=== PATIENT | male | born 1990 | race Caucasian/White ===

== ENCOUNTER 2017-05-17 21:31 | Emergency (ER) | payer BC ==
[2017-05-17 21:54] VITALS: RESP 18
[2017-05-17] MEDS ORDERED: PROPARACAINE 0.5% OPHTH DROPS 15 ML BTL BOTH EYES STA (23:05)
[2017-05-17] MEDS ORDERED: DIPH,PERTUS(ACELL)TETVAC-LF 0.5 ML VIAL IM ONE (23:15)
--- NOTE | 2017-05-17 23:16 | ED ---
Eye Problem HPI - General Chief complaint: Eye Problems Stated complaint: FB in eye Time Seen by Provider: 05/17/17 23:01 Source: patient, RN notes reviewed Mode of arrival: ambulatory Limitations: no limitations - History of Present Illness Initial comments: Patient is a 27-year-old male presents to the emergency room for evaluation of bilateral eye pain. Patient states today he was working on an exhaust pipe and got pieces of metal in both of his eyes. Patient states he was not wearing protective glasses or goggles. Patient states he tried to flush his eyes out with normal saline. Patient states he feels like he still has metal in his eyes. Patient states his eyes burn when he blinks. Patient denies changes in vision. Patient states last tetanus shot was greater than 5 years ago. - Related Data Home Medications Medication Instructions Recorded Confirmed Dextroamphetamine/Amphetamine 20 mg PO QAM 05/17/17 05/17/17 [Adderall Xr] Previous Rx's Medication Instructions Recorded Erythromycin Ophth Oint [Romycin 1 applic BOTH EYES QID 10 Days 05/18/17 Ophth Oint] Allergies Allergy/AdvReac Type Severity Reaction Status Date / Time No Known Allergies Allergy Verified 05/17/17 23:13 Review of Systems ROS Statement: Those systems with pertinent positive or pertinent negative responses have been documented in the HPI. ROS Other: All systems not noted in ROS Statement are negative. Past Medical History Past Medical History: No Reported History History of Any Multi-Drug Resistant Organisms: None Reported Past Surgical History: No Surgical Hx Reported Past Psychological History: ADD/ADHD Smoking Status: Former smoker Past Alcohol Use History: Occasional Past Drug Use History: None Reported General Exam - General Exam Comments Initial Comments: Sitting in exam room, no distress. Limitations: no limitations General appearance: alert, in no apparent distress Head exam: Present: atraumatic, normocephalic, normal inspection Eye exam: Present: PERRL, EOMI Expanded Eyelids: Normal Inspection: Bilateral Pupils: Regular, Round: Bilateral, Reactive: Bilateral Sclera/Conjunctival: Injection: Bilateral, Foreign Body: Bilateral (1 small metal speck in bilateral eyes.) ENT exam: Present: normal exam Neck exam: Present: normal inspection Respiratory exam: Absent: respiratory distress Extremities exam: Present: normal inspection Back exam: Present: normal inspection Neurological exam: Present: alert, oriented X3, CN II-XII intact, normal gait Psychiatric exam: Present: normal affect, normal mood Skin exam: Present: warm, dry, intact, normal color. Absent: rash Course Vital Signs 05/17/17 05/18/17 21:51 00:49 Temperature 98.4 F 98.1 F Pulse Rate 68 71 Respiratory 18 18 Rate Blood Pressure 125/84 131/75 O2 Sat by Pulse 99 99 Oximetry Procedures - Procedures Initial comment: Bilateral dry foreign body removal: Both eyes anesthetized with proparacaine drops. Right eye metallic flake removed with cotton tip. Left eye metallic flake removed with Roslyn brush. Medical Decision Making - Medical Decision Making Patient is a 27-year-old male presents emergency room for evaluation of foreign bodies in bilateral eyes. Right foreign body was removed with cotton tip. Left eye foreign bodies removed with Roslyn brush. Patient placed on ophthalmic erythromycin ointment. Patient advised to follow-up with quality inspector. Patient states she understands everything that was discussed with him. Return parameters discussed. Case discussed Dr. Chapman. Disposition Clinical Impression: Eye foreign bodies Disposition: HOME SELF-CARE Condition: Good Instructions: Eye Lubricant (Into the eye), Eye Foreign Body (ED) Additional Instructions: Apply eye ointment as directed to both eyes. Tylenol or Motrin as needed for discomfort. Please follow up with quality inspector for reevaluation in 24-48 hours. If any new symptom arises or symptoms worsen, return to ER as soon as possible. Prescriptions: Erythromycin Ophth Oint [Romycin Ophth Oint] 1 applic BOTH EYES QID 10 Days Referrals: Jered Malloy MD [Primary Care Provider] - 1-2 days Rolando Garcia MD [STAFF PHYSICIAN] - 1-2 days Time of Disposition: 00:11
[2017-05-18] MEDS ORDERED: ERYTHROMYCIN 5 MG/GM OPHTH OINT 3.5 GM TUBE BOTH EYES STA (00:10)
[2017-05-18 00:50] VITALS: BP 131/75; PULSE 71; TEMP 98.1
== END 2017-05-18 00:50 | disposition home or self-care (01) ==
LOC: EC 21:31
DX: T15.11XA Foreign body in conjunctival sac, right eye, initial encounter (principal); T15.12XA Foreign body in conjunctival sac, left eye, initial encounter; F90.9 Attention-deficit hyperactivity disorder, unspecified type; Z87.891 Personal history of nicotine dependence; Z79.899 Other long term (current) drug therapy; Z23 Encounter for immunization; Y93.89 Activity, other specified
CPT/HCPCS: 90471; 90715; 99282